=== PATIENT | female | born 1995 | race African-American/Black ===

== ENCOUNTER 2017-03-28 10:11 | Emergency (ER) | payer OTHER ==
[~2017-03-28] VITALS: Ht 160 cm; Wt 72.0 kg
[~2017-03-28 10:11] MED LIST: IBUP600T26 PO
[2017-03-28 10:13] VITALS: BP 122/69; PULSE 78; RESP 20; TEMP 97.9; O2SAT 99
--- NOTE | 2017-03-28 11:28 | PD ---
HPI Chief Complaint: General Weakness Time Seen by Provider: 11:24 Travel History International Travel<30 days: No Contact w/Intl Traveler<30days: No Traveled to known affect area: No History of Present Illness HPI 22-year-old female that presents to the ED for evaluation of lightheadedness. Per patient she's had this for about 2 weeks. Per patient he comes and goes. 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 Therefore she came here. Per patient she works in a very hot environment and she does not drink plenty of fluids. She denies any fevers or . She denies any medical issues. No recent travel. No fevers chills or sweats. Per patient she does feel somewhat tired. She states that she has had no extremity is vaginal bleeding. She denies any pain. She has any chest pain. No palpitations. No other symptom of any kind. Per patient she is here mainly to get medical clearance and she can go back to work. Per patient lightheadedness is only present when she stands up. PFSH Past Medical History ?: Unknown : 1 Social History Alcohol Use: No Tobacco Use: Yes (quit in 03/2015) Substance Use: No Allergies-Medications (Allergen,Severity, Reaction): Coded Allergies: No Known Allergies (Unverified , 03/28/17) Reported Meds & Prescriptions Reported Meds & Active Scripts Active Ibuprofen 600 Mg Tab 600 Mg PO TID Review of Systems Except as stated in HPI: all other systems reviewed are Neg Physical Exam Narrative GENERAL: SKIN: Warm and dry. HEAD: Atraumatic. Normocephalic. EYES: Pupils equal and round. No scleral icterus. No injection or drainage. ENT: No nasal bleeding or discharge. Mucous membranes pink and moist. Tongue is midline. No uvula deviation. TMs are clear with no sign of infection or perforation. Nostril mucosa is pink and moist. No cervical tenderness. No meningeal signs noted. NECK: Trachea midline. No JVD. CARDIOVASCULAR: Regular rate and rhythm. No murmurs, S3, S4. RESPIRATORY: No accessory muscle use. Clear to auscultation. Breath sounds equal bilaterally. GASTROINTESTINAL: Abdomen soft, non-tender, nondistended. Hepatic and splenic margins not palpable. MUSCULOSKELETAL: Extremities without clubbing, cyanosis, or edema. No obvious deformities. Full range of motion of the upper and lower extremities bilaterally. 2+ pulses bilaterally. NEUROLOGICAL: Awake and alert. No obvious cranial nerve deficits. Motor grossly within normal limits. Five out of 5 muscle strength in the arms and legs. Normal speech. PSYCHIATRIC: Appropriate mood and affect; insight and judgment normal. Data Data Last Documented VS Vital Signs Date Time Temp Pulse Resp B/P Pulse Ox O2 Delivery O2 Flow Rate FiO2 03/28/17 10:30 97 Room Air 03/28/17 10:13 97.9 78 20 122/69 Orders Complete Blood Count With Diff (03/28/17 10:59) Basic Metabolic Panel (Bmp) (03/28/17 10:59) Urinalysis - C+S If Indicated (03/28/17 10:59) Magnesium (Mg) (03/28/17 10:59) Thyroid Stimulating Hormone (03/28/17 10:59) Ed Urine Pregnancytest Poc (03/28/17 10:59) Labs Laboratory Tests Test 03/28/17 11:05 White Blood Count 10.1 TH/MM3 Red Blood Count 4.51 MIL/MM3 Hemoglobin 12.3 GM/DL Hematocrit 38.0 % Mean Corpuscular Volume 84.2 FL Mean Corpuscular Hemoglobin 27.4 PG Mean Corpuscular Hemoglobin 32.5 % Concent Red Cell Distribution Width 13.7 % Platelet Count 229 TH/MM3 Mean Platelet Volume 10.0 FL Neutrophils (%) (Auto) 61.6 % Lymphocytes (%) (Auto) 28.1 % Monocytes (%) (Auto) 8.5 % Eosinophils (%) (Auto) 1.2 % Basophils (%) (Auto) 0.6 % Neutrophils # (Auto) 6.2 TH/MM3 Lymphocytes # (Auto) 2.8 TH/MM3 Monocytes # (Auto) 0.9 TH/MM3 Eosinophils # (Auto) 0.1 TH/MM3 Basophils # (Auto) 0.1 TH/MM3 CBC Comment DIFF FINAL Differential Comment Urine Color YELLOW Urine Turbidity CLEAR Urine pH 6.5 Urine Specific [place] 1.030 Urine Protein TRACE mg/dL Urine Glucose (UA) NEG mg/dL Urine Ketones NEG mg/dL Urine Occult Blood NEG Urine Nitrite NEG Urine Bilirubin NEG Urine Urobilinogen LESS THAN 2.0 MG/DL Urine Leukocyte Esterase NEG Urine RBC 1 /hpf Urine WBC 3 /hpf Urine Squamous Epithelial 4 /hpf Cells Urine Mucus FEW /lpf Microscopic Urinalysis Comment CULT NOT INDICATED Sodium Level 140 MEQ/L Potassium Level 4.3 MEQ/L Chloride Level 107 MEQ/L Carbon Dioxide Level 27.3 MEQ/L Anion Gap 6 MEQ/L Blood Urea Nitrogen 9 MG/DL Creatinine 0.56 MG/DL Estimat Glomerular Filtration 162 ML/MIN Rate Random Glucose 73 MG/DL Calcium Level 9.0 MG/DL Magnesium Level 2.1 MG/DL Thyroid Stimulating Hormone 2.060 uIU/ML 3rd Gen [facility] Medical Decision Making Medical Screen Exam Complete: Yes Emergency Medical Condition: Yes Medical Record Reviewed: Yes Interpretation(s) CBC & BMP Diagram 03/28/17 11:05 TSH WNL UA negative Differential Diagnosis Lightheadedness versus versus electrolyte a multi-versus anemia versus thyroid disease versus normal exam Narrative Course 22-year-old female that presents to the ED for evaluation of lightheadedness. Patient was properly examined and was found to have signs and symptoms of unclear etiology. She is symptomatic at this time. Most of the symptoms appeared to happen at work but also at home. At this time recommend labs to rule out acute disease. Patient is agreeable with this plan. Labs showed here no sign of acute disease. Unclear etiology of the lightheadedness. I recommend close follow-up with PCP. Patient okay to go back to work. See ED worsening symptoms. Diagnosis Primary Impression: Light-headedness Patient Instructions: General Instructions Departure Forms: Tests/Procedures, Work Release Enter return to work date: Mar 29, 2017 Additional Instructions: Follow-up with PCP. See ED for worsening symptoms. Drink plenty of fluids while working. You are okay to go back to work as long as you keep hydrated. Your blood work here was unremarcable. Med/Other Pt SpecificInfo: No Change to Meds Disposition: 01 DISCHARGE HOME Condition: Stable Luis Enrique Mckeon Mar 28, 2017 11:28
[2017-03-28 11:33] LABS: AUTOMATED NEUTROPHIL # 6.2 TH/MM3 (1.8-7.7); BASOPHIL # 0.1 TH/MM3 (0-0.2); BASOPHIL % 0.6 % (0.0-2.0); EOSINOPHIL # 0.1 TH/MM3 (0-0.4); EOSINOPHIL % 1.2 % (0.0-4.0); HEMO FLAGS DIFF FINAL; LYMPH % 28.1 % (9.0-44.0); LYMPHOCYTE # 2.8 TH/MM3 (1.0-4.8); MEAN CELL VOLUME 84.2 FL (80.0-100.0); MEAN CORPUSCULAR HEMOGLOBIN 27.4 PG (27.0-34.0); MEAN CORPUSCULAR HGB CONC 32.5 % (32.0-36.0); MONO % 8.5 % (0.0-8.0); NEUT % 61.6 % (16.0-70.0); PLATELET COUNT 229 TH/MM3 (150-450); RED BLOOD COUNT 4.51 MIL/MM3 (4.00-5.30); RED CELL DISTRIBUTION WIDTH 13.7 % (11.6-17.2); WHITE BLOOD COUNT 10.1 TH/MM3 (4.0-11.0)
[2017-03-28 11:42] LABS: BLOOD, URINE NEG (NEG); GLUCOSE,URINE NEG (NEG); KETONE, URINE NEG (NEG); MUCUS URINE FEW /lpf (OCC); NITRITE,URINE NEG (NEG); PH, URINE 6.5 (5.0-8.5); SQUAMOUS EPITHELIAL CELL URINE 4 /hpf (0-5); URINE COLOR YELLOW (YELLW/STRAW)
[2017-03-28 11:46] LABS: COMMENT (UR) CULT NOT INDICATED; CULTURE IF INDICATED CULT NOT INDICATED
[2017-03-28 12:29] LABS: BICARBONATE 27.3 MEQ/L (21.0-32.0); MAGNESIUM 2.1 MG/DL (1.5-2.5); POTASSIUM 4.3 MEQ/L (3.5-5.1)
== END 2017-03-28 13:00 | disposition home or self-care (01) ==
LOC: NEPD 10:11
DX: R42 Dizziness and giddiness (principal)
CPT/HCPCS: 80048; 81001; 83735; 84443; 84703; 85025; 99283

== ENCOUNTER 2017-04-11 11:35 | Emergency (ER) | payer OTHER ==
[~2017-04-11] VITALS: Ht 160 cm; Wt 68.0 kg
[2017-04-11 11:37] VITALS: BP 124/69; PULSE 100; RESP 20; TEMP 98.4; O2SAT 100
[2017-04-11] MEDS ORDERED: IBUP800T23 PO (12:34)
[2017-04-11] MEDS ORDERED: AMOX500C PO (12:34)
[2017-04-11] MEDS ORDERED: MAGICPED SWISH-SPIT (12:34)
--- NOTE | 2017-04-11 12:35 | PD ---
HPI Chief Complaint: ENT Complaint Time Seen by Provider: 12:33 Travel History International Travel<30 days: No Contact w/Intl Traveler<30days: No Traveled to known affect area: No History of Present Illness HPI 22-year-old female presents to emergency department complaining of right ear pain and sore throat since last night. Denies fever, vomiting. Reports nasal congestion and occasional cough. Reports voice is hoarse. Reports swelling in her throat. Denies unusual drooling, lump in throat, difficulty swallowing. Reports painful swallowing. Denies abdominal pain. Reports headache. Has not taken any medications or tried any treatments to alleviate her symptoms. No known allergies. Has no other medical complaints. No other modifying factors or associated signs and symptoms. PFSH Past Medical History ?: Not : 1 Social History Alcohol Use: No Tobacco Use: Yes (quit in 03/2015) Substance Use: No Allergies-Medications (Allergen,Severity, Reaction): Coded Allergies: No Known Allergies (Unverified , 04/11/17) Reported Meds & Prescriptions Reported Meds & Active Scripts Active Magic Mouthwash Pediatric/Adult Liq (Lidocaine/Diphenhydr/Alum/Mg/Simeth) 60 Ml Susp 5 Ml SWISH-SPIT Q3HR PRN Each 5mL contains: Diphenydramine 4.5mg, Viscous Lidocaine 2% 10mg, Maalox Advanced Regular Strength 2.7ml Ibuprofen 800 Mg Tab 800 Mg PO Q6HR PRN Amoxicillin 500 Mg Cap 500 Mg PO BID 10 Days Ibuprofen 600 Mg Tab 600 Mg PO TID Review of Systems Except as stated in HPI: all other systems reviewed are Neg Physical Exam Narrative GENERAL: Well-nourished, well-developed female patient, in no acute distress; afebrile, nontoxic-appearing SKIN: Warm and dry. No rash. HEAD: Atraumatic. Normocephalic. EYES: Pupils equal and round at 3 mm with brisk reaction. No scleral icterus. No injection or drainage. PERRLA. ENT: Mucosa pink and dry. Pharynx with 2+ tonsils; with erythema, exudate, and edema. No Uvular edema. No uvular, palatal, or tonsillar deviation. Airway patent. Voice is hoarse. EARS: Bilateral pinnae and external canals appear within normal limits. Bilateral tympanic membranes without erythema, dullness or perforation.. NECK: Trachea midline. Anterior cervical lymphadenopathy and tenderness. CARDIOVASCULAR: Regular rate. RESPIRATORY: No accessory muscle use. GASTROINTESTINAL: Flat. MUSCULOSKELETAL: No obvious deformities. No clubbing. No cyanosis. No edema. NEUROLOGICAL: Awake and alert. Oriented 3. No obvious cranial nerve deficits. Motor grossly within normal limits. Normal speech. Moves all extremities. PSYCHIATRIC: Appropriate mood and affect; insight and judgment normal. Data Data Last Documented VS Vital Signs Date Time Temp Pulse Resp B/P Pulse Ox O2 Delivery O2 Flow Rate FiO2 04/11/17 11:37 98.4 100 20 124/69 100 Room Air Orders Ibuprofen (Motrin) (04/11/17 12:45) [facility] Medical Decision Making Medical Screen Exam Complete: Yes Emergency Medical Condition: Yes Medical Record Reviewed: Yes Differential Diagnosis Exudative pharyngitis, strep pharyngitis, viral pharyngitis, mono, less likely peritonsillar abscess Narrative Course 22-year-old female physical exam consistent with exudative pharyngitis. Patient afebrile and nontoxic-appearing. Denies fever, vomiting. Ibuprofen administered in the ER. Amoxicillin, Magic mouthwash, ibuprofen prescribed for home. Instructed patient to follow up with primary care provider. Patient verbalizes understanding and agreement with treatment plan. Patient is medically cleared and stable for discharge. Discussed reasons to return to the emergency department. Patient agrees with treatment plan. The patients vital signs are stable and the patient is stable for outpatient follow-up and treatment. Patient discharged home, stable and in no acute distress. Diagnosis Primary Impression: Exudative pharyngitis Referrals: Primary Care Physician Patient Instructions: General Instructions, Pharyngitis (ED) Departure Forms: Tests/Procedures, Work Release Enter return to work date: Apr 13, 2017 Additional Instructions: Take Antibiotics as prescribed and complete full course of antibiotics Throw away and change your toothbrush 24 hours after starting antibiotics Get plenty of sleep/rest Rest your voice Drink plenty of fluids to prevent dehydration Use warm saltwater gargles to soothe throat pain Use an air humidifier/turn off ceiling fans Use throat lozenges as needed for sore throat Use ibuprofen or acetaminophen as needed to relieve pain and fever Follow-up with your primary care provider within 2-4 days Return immediately to the emergency department with worsening of symptoms Med/Other Pt SpecificInfo: Prescription(s) given Scripts Ulfavpmebvccniu-Eqrehbuet-Tdr-Alum-Simeth Liq (Magic Mouthwash Pediatric/Adult Liq)60 Ml Susp5 Ml SWISH-SPIT Q3HR PRN (SORE THROAT) #60 ML Ref 0 Each 5mL contains: Diphenydramine 4.5mg, Viscous Lidocaine 2% 10mg, Maalox Advanced Regular Strength 2.7ml Prov:Carlie Brewster 04/11/17 Ibuprofen 800 Mg [id number] Mg PO Q6HR PRN (PAIN) #30 TAB Ref 0 Prov:Carlie Brewster 04/11/17 Amoxicillin 500 Mg [id number] Mg PO BID 10 Days Ref 0 Prov:Carlie Brewster 04/11/17 Disposition: 01 DISCHARGE HOME Condition: Stable Carlie Brewster Apr 11, 2017 12:35
[2017-04-11] MEDS ORDERED: IBUPROFEN 800 MG TAB PO ONE (12:45)
== END 2017-04-11 12:42 | disposition home or self-care (01) ==
LOC: NEPK 11:35
DX: J02.9 Acute pharyngitis, unspecified (principal); H92.01 Otalgia, right ear; R05 Cough; Z87.891 Personal history of nicotine dependence
CPT/HCPCS: 99284

== ENCOUNTER 2017-04-12 12:38 | Emergency (ER) | payer OTHER ==
[~2017-04-12] VITALS: Ht 160 cm; Wt 70.0 kg
[~2017-04-12 12:38] MED LIST changes: +AMOX500C PO; +IBUP800T23 PO; +MAGICPED SWISH-SPIT
[2017-04-12 12:53] VITALS: BP 126/74; PULSE 90; RESP 20; O2SAT 100
--- NOTE | 2017-04-12 12:56 | PD ---
HPI Chief Complaint: Respiratory Symptoms Time Seen by Provider: 12:51 Travel History International Travel<30 days: No Contact w/Intl Traveler<30days: No History of Present Illness HPI 22-year-old female here with complaint of sore throat and shortness of breath. Patient seen here in our emergency department yesterday with sore throat and diagnosed with pharyngitis. Discharged home with Magic mouthwash and amoxicillin but she has not yet filled these prescriptions stating that she was specific, but the pharmacy this afternoon. Patient states that she woke up from a nap this morning and felt as though her throat was closing in on her and she began to feel short of breath and had a anxiety and panic attack and EMS was dispatched to the house. Patient was not in any respiratory distress but was hyperventilating and tachycardic when EMS arrived, improved in route. Patient states that her throat is still sore, swollen and seems to have gotten worse today. No fevers or chills. PFSH Past Medical History Medical History: Denies Significant Hx Diminished Hearing: No Immunizations Current: No : 1 Social History Alcohol Use: No Tobacco Use: Yes (5 CIG PER DAY ) Substance Use: No Allergies-Medications (Allergen,Severity, Reaction): Coded Allergies: No Known Allergies (Unverified , 04/11/17) Reported Meds & Prescriptions Reported Meds & Active Scripts Active Magic Mouthwash Pediatric/Adult Liq (Lidocaine/Diphenhydr/Alum/Mg/Simeth) 60 Ml Susp 5 Ml SWISH-SPIT Q3HR PRN Each 5mL contains: Diphenydramine 4.5mg, Viscous Lidocaine 2% 10mg, Maalox Advanced Regular Strength 2.7ml Ibuprofen 800 Mg Tab 800 Mg PO Q6HR PRN Amoxicillin 500 Mg Cap 500 Mg PO BID 10 Days Ibuprofen 600 Mg Tab 600 Mg PO TID Review of Systems Except as stated in HPI: all other systems reviewed are Neg Physical Exam Narrative GENERAL: Well-appearing female in no acute distress SKIN: Focused skin assessment warm/dry. HEAD: Normocephalic. EYES: No scleral icterus. No injection or drainage. ENT: Posterior pharynx with 2-3+ tonsils with white exudate bilaterally, palatal petechiae. Structures are midline, no uvular deviation. Neck is supple with some shoddy anterior cervical lymphadenopathy. Floor of the mouth is soft. No nasal bleeding or discharge. Mucous membranes pink and moist. NECK: Supple with shoddy anterior cervical lymphadenopathy, full pain-free range of motion. CARDIOVASCULAR: Regular rate and rhythm. No murmur appreciated. RESPIRATORY: No accessory muscle use. Clear to auscultation. Breath sounds equal bilaterally. MUSCULOSKELETAL: Normal gait NEUROLOGICAL: Awake and alert. Normal speech. PSYCHIATRIC: Appropriate mood and affect; insight and judgment normal. Data Data Orders Penicillin G Benzathine Inj (Bicillin L- (04/12/17 13:00) Dexamethasone Inj (Decadron Inj) (04/12/17 13:00) [facility] Medical Decision Making Medical Screen Exam Complete: Yes Emergency Medical Condition: Yes Medical Record Reviewed: Yes Differential Diagnosis 22-year-old female here with sore throat and a sense of her throat closing in upon her causing shortness of breath. Exam is consistent with exudate of pharyngitis, likely strep given her symptomatology. At this time structures are midline and there is no evidence of peritonsillar abscess, retropharyngeal abscess, Jorge angina. Narrative Course Patient was given intramuscular penicillin and Decadron and discharged home Diagnosis Primary Impression: Exudative pharyngitis Referrals: [facility] as needed Primary Care Physician as needed Additional Instructions: You do not need to fill the prescription for the amoxicillin. You were given penicillin intramuscularly here and do not need to take any more antibiotics at home. Can use the Magic mouthwash that was prescribed yesterday as this will help with pain in the interim while the antibiotics kick in. Return to the emergency department for the warning signs discussed. Med/Other Pt SpecificInfo: No Change to Meds Disposition: 01 DISCHARGE HOME Condition: Stable Yani Oakes MD Apr 12, 2017 12:56
[2017-04-12] MEDS ORDERED: DEXAMETHASONE SOD PHOS 20 MG/5 ML VIAL IM ONE (13:00)
[2017-04-12] MEDS ORDERED: PENICILLIN G BENZATHINE 1,200,000 UNITS/2 ML SYRINGE IM ONE (13:00)
[2017-04-12 13:08] VITALS: TEMP 99.3
== END 2017-04-12 14:29 | disposition home or self-care (01) ==
LOC: NEPD 12:38
DX: J02.9 Acute pharyngitis, unspecified (principal); F17.210 Nicotine dependence, cigarettes, uncomplicated
CPT/HCPCS: 96372; 99284; J0561; J1100

== ENCOUNTER 2017-06-17 00:10 | Emergency (ER) | payer SELFPAY ==
[~2017-06-17] VITALS: Ht 160 cm; Wt 63.5 kg
[2017-06-17 00:12] VITALS: BP 119/63; PULSE 90; RESP 16; TEMP 98.5; O2SAT 99
--- NOTE | 2017-06-17 01:36 | PD ---
HPI Chief Complaint: Abdominal Pain Time Seen by Provider: 01:19 Travel History International Travel<30 days: No Contact w/Intl Traveler<30days: No Traveled to known affect area: No History of Present Illness HPI 22-year-old female complains of left lower quadrant abdominal pain. Patient states that her last menstruation period was the first week in April. Patient states that she has intermittent sharp pain localized left lower quadrant of the abdomen. Patient denies any pain radiation. Patient denies any dysuria or frequency. Patient denies any fever chills. Patient denies any vaginal discharge or bleeding. Patient's blood type O+. PFSH Past Medical History Diminished Hearing: No Immunizations Current: No Influenza Vaccination: Yes ?: Unknown LMP: 04/12/17 : 1 Para: 1 Social History Alcohol Use: No Tobacco Use: Yes (5 CIG PER DAY ) Substance Use: No Allergies-Medications (Allergen,Severity, Reaction): Coded Allergies: No Known Allergies (Unverified , 06/17/17) Reported Meds & Prescriptions Reported Meds & Active Scripts Active No Active Prescriptions or Reported Medications Review of Systems General / Constitutional: No: Fever Eyes: No: Visual changes HENT: No: Headaches Cardiovascular: No: Chest Pain or Discomfort Respiratory: No: Shortness of Breath Gastrointestinal: Positive: Abdominal Pain Genitourinary: No: Dysuria Musculoskeletal: No: Pain Skin: No Rash Neurologic: No: Weakness Psychiatric: No: Depression Endocrine: No: Polydipsia Hematologic/Lymphatic: No: Easy Bruising Physical Exam Narrative GENERAL: Well-nourished, well-developed patient. SKIN: Focused skin assessment warm/dry. HEAD: Normocephalic. EYES: No scleral icterus. No injection or drainage. NECK: Supple, trachea midline. No JVD or lymphadenopathy. CARDIOVASCULAR: Regular rate and rhythm without murmurs, gallops, or rubs. RESPIRATORY: Breath sounds equal bilaterally. No accessory muscle use. GASTROINTESTINAL: Abdomen soft, nondistended. Patient has mild tenderness on palpation left lower quadrant the abdomen. No rebound tenderness. No mass. MUSCULOSKELETAL: No cyanosis, or edema. BACK: Nontender without obvious deformity. No CVA tenderness. 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 No cervical motion tenderness. Uterus is enlarged and nontender on palpation. No adnexal masses or tenderness. Data Data Last Documented VS Vital Signs Date Time Temp Pulse Resp B/P (MAP) Pulse Ox O2 Delivery O2 Flow Rate FiO2 06/17/17 00:12 98.5 90 16 119/63 (81) 99 Orders Orders Urinalysis - C+S If Indicated (06/17/17 01:22) Iv Access Insert/Monitor (06/17/17 01:22) Ed Urine Pregnancytest Poc (06/17/17 01:46) Labs Laboratory Tests Test 06/17/17 01:20 Urine Color YELLOW Urine Turbidity HAZY Urine pH 7.0 Urine Specific [place] 1.031 Urine Protein 30 mg/dL Urine Glucose (UA) NEG mg/dL Urine Ketones NEG mg/dL Urine Occult Blood NEG Urine Nitrite NEG Urine Bilirubin NEG Urine Urobilinogen 2.0 MG/DL Urine Leukocyte Esterase NEG Urine RBC LESS THAN 1 /hpf Urine WBC 3 /hpf Urine Squamous Epithelial Cells 19 /hpf Urine Hyaline Casts 1 /lpf Urine Mucus MANY /lpf Microscopic Urinalysis Comment CULT NOT INDICATED MDM Medical Decision Making Medical Screen Exam Complete: Yes Emergency Medical Condition: Yes Interpretation(s) 2:32 AM. UA is negative Differential Diagnosis Differential diagnosis including musculoskeletal, ligament pain, ovarian cyst, UTI, ectopic . Narrative Course 22-year-old female with left lower quadrant abdominal pain. Bedside ultrasound shows intrauterine , active fetus, heart tones 146. Diagnosis Primary Impression: Pelvic pain in Patient Instructions: General Instructions Additional Instructions: Tylenol for pain. Advised Inada vitamins. Follow-up with OB physician. Return if worse. Return immediately if vaginal bleeding or increasing pain. Med/Other Pt SpecificInfo: No Meds Exist/No RX given Scripts No Active Prescriptions or Reported Meds Disposition: DISCHARGE HOME Condition: Stable Zaid Barriga MD Jun 17, 2017 01:36
[2017-06-17 02:11] LABS: BLOOD, URINE NEG (NEG); GLUCOSE,URINE NEG (NEG); HYALINE CAST, URINE 1 /lpf (RARE); KETONE, URINE NEG (NEG); MUCUS URINE MANY /lpf (OCC); NITRITE,URINE NEG (NEG); SQUAMOUS EPITHELIAL CELL URINE 19 /hpf (0-5); URINE COLOR YELLOW (YELLW/STRAW)
[2017-06-17 02:12] LABS: COMMENT (UR) CULT NOT INDICATED; CULTURE IF INDICATED CULT NOT INDICATED
== END 2017-06-17 02:57 | disposition home or self-care (01) ==
LOC: NEPC 00:10
DX: R10.2 Pelvic and perineal pain (principal); Z33.1 Pregnant state, incidental
CPT/HCPCS: 81001; 84703; 99284

== ENCOUNTER 2017-09-02 14:02 | Emergency (ER) | payer OTHER ==
[~2017-09-02] VITALS: Ht 160 cm; Wt 68.2 kg
[2017-09-02 14:05] VITALS: BP 140/86; PULSE 86; RESP 12; TEMP 98.4; O2SAT 98
[2017-09-02 14:52] VITALS: BP 118/61; PULSE 83
[2017-09-02 15:00] VITALS: RESP 18; TEMP 98
[2017-09-02] MEDS ORDERED: ACETAMINOPHEN 325 MG TAB PO ONE (15:00)
--- NOTE | 2017-09-02 15:12 | PD ---
HPI Chief Complaint Spotting, pelvic pain Date Seen: Sep 02, 2017 Time Seen: 15:00 Travel History International Travel<30 Days: No Contact w/Intl Traveler<30Days: No Known Affected Area: No History of Present Illness HPI Patient is a 22-year-old at about 23 weeks who presents with vaginal spotting and pelvic pain. She reports that she has had pelvic pain for the past 3 weeks, but it has become acutely worse, which is why she presented to the OB emergency department. She reports that she has had spotting since last week, on and off, varying from a light pink to a dark discharge, significantly less then a menstrual period. She has not had any care this . She denies any contractions or leakage of fluid. She reports movement at baseline. History Past Medical History Medical History: Denies Significant Hx Obstetric History Obstetric History Patient is a . She reports that her last was uncomplicated. She delivered full-term vaginal delivery of a normal weight daughter. Past Surgical History Surgical History: No Previous Surgery Family History Family History: Negative Social History Narrative Social History Patient lives at home with her boyfriend and daughter. Alcohol Use: No Tobacco Use: Yes (2 cigarettes per day) Substance Abuse: No Allergies-Medications (Allergen,Severity, Reaction): Coded Allergies: No Known Allergies (Unverified Allergy, Unknown, 09/02/17) Home Meds Active Scripts Cephalexin (Cephalexin) 500 Mg Cap, 500 MG PO Q6H for Infection for 5 Days, #20 CAP 0 Refills Prov:Rocky Levy MD R2 09/02/17 Review of Systems General / Constitutional: No: Fever, Chills Eyes: No: Visual changes HENT: No: Headaches Cardiovascular: No: Chest Pain or Discomfort Respiratory: No: Short of Breath Gastrointestinal: No: Nausea, Vomiting, Abdominal Pain Genitourinary: No: Dysuria Musculoskeletal: Pain (pelvic pain), No: Cramping, Edema Neurologic: Dizziness (with prolonged standing or walking) Physical Exam 118/61, 83 Narrative GENERAL: Well-nourished, well-developed patient. SKIN: Warm and dry. HEAD: Normocephalic and atraumatic. EYES: No scleral icterus. No injection or drainage. ENT: No nasal drainage noted. Mucous membranes pink. Airway patent. NECK: Supple, trachea midline. No JVD. CARDIOVASCULAR: Regular rate and rhythm without murmurs, gallops, or rubs. RESPIRATORY: Breath sounds equal bilaterally. No accessory muscle use. BREASTS: Bilateral exam showed no masses , no retractions, no nipple discharge. ABDOMEN/GI: Abdomen soft, non-tender, bowel sounds present, no rebound, no guarding Gravid to around 20-24 weeks size GENITOURINARY: Uterine Contractions: none FHT's: Category: Cat I Baseline: 140 Reactive: not well traced, but there appear to be accelerations present Variability: moderate Decels: none EXTREMITIES: No cyanosis or edema. BACK: Nontender without obvious deformity. No CVA tenderness. NEUROLOGICAL: Awake and alert. Motor and sensory grossly within normal limits. Five out of 5 muscle strength in all muscle groups. Normal speech. Data Data Vital Signs Reviewed: Yes Orders Orders Ed Urine Pregnancytest Poc (09/02/17 14:03) Vital Signs (Adult) .ON ADMISSION (09/02/17 14:56) ^ Labor Status (09/02/17 14:56) Urinalysis - C+S If Indicated (09/02/17 14:56) ^ Hydration (09/02/17 14:56) Acetaminophen (Tylenol) (09/02/17 15:00) Ob/Psych Drug Screen, Urine (09/02/17 14:56) Drug Screen, Random Urine (09/02/17 14:56) Rubella Immune Status (09/02/17 14:56) Hepatitis Profile (09/02/17 14:56) Rapid Plasma Regin (Rpr) W Ttr (09/02/17 14:56) Type And Screen (09/02/17 14:56) Complete Blood Count With Diff (09/02/17 14:56) Special Serology (09/02/17 14:56) Us Ob Pelvis >14 Wks Fetus (09/02/17 ) MDM Plan Patient is a 22-year-old at about 23 weeks who presents with a week of vaginal spotting and 3 weeks of pelvic pain, which became acutely worse. She has not had care this . 1. Spotting -OB ultrasound for placenta, growth, dates, BPP -Monitor vital signs, labor status/tocometry -Type and screen to see if she needs Rhogam -CBC to r/o anemia given her h/o dizziness 2. Pelvic pain without contractions -Tylenol PRN -Warm baths, compresses when necessary 3. No PNC -UA, UDS -OB US as above -Encouraged patient to establish care -Encouraged patient to take PNV d/w Dr. Coronel Addendum: Ultrasound was performed. Suggested update to gestational age. Patient is now currently 24 weeks and 2 days. Exam was normal. UA concerning for UTI with moderate leukocyte esterase, moderate bacteria, few mucus, culture indicated. Plan to treat with Keflex 500 mg by mouth every 6 hours for 5 days. Still waiting on CBC and T&S, but patient reports that she is fairly certain her blood type is O+. Diagnosis Diagnosis: Primary Impression: Vaginal spotting Additional Impressions: Spotting affecting No care in current UTI (urinary tract infection) during Ruled Out: Placenta previa affecting delivery Disposition: 01 DISCHARGE HOME Condition: Good Scripts Cephalexin (Cephalexin) 500 Mg Cap 500 MG PO Q6H for Infection for 5 Days, #20 CAP 0 Refills Prov: Rocky Levy MD R2 09/02/17 Rocky Levy MD R2 Sep 02, 2017 15:12
[2017-09-02 16:51] LABS: BACTERIA, URINE MOD /hpf; BLOOD, URINE NEG (NEG); COMMENT (UR) CULTURE INDICATED; CULTURE IF INDICATED CULTURE INDICATED; GLUCOSE,URINE NEG (NEG); KETONE, URINE NEG (NEG); MUCUS URINE FEW /lpf (OCC); NITRITE,URINE NEG (NEG); SQUAMOUS EPITHELIAL CELL URINE 25 /hpf (0-5); URINE COLOR YELLOW (YELLW/STRAW)
[2017-09-02] MEDS ORDERED: CEPH500C PO (17:33)
[2017-09-02 17:41] LABS: AUTOMATED NEUTROPHIL # 5.9 TH/MM3 (1.8-7.7); BASOPHIL # 0.1 TH/MM3 (0-0.2); BASOPHIL % 0.6 % (0.0-2.0); EOSINOPHIL # 0.1 TH/MM3 (0-0.4); EOSINOPHIL % 0.9 % (0.0-4.0); HEMATOCRIT 33.9 % (35.0-46.0); HEMO FLAGS DIFF FINAL; LYMPH % 28.2 % (9.0-44.0); LYMPHOCYTE # 2.7 TH/MM3 (1.0-4.8); MEAN CELL VOLUME 87.6 FL (80.0-100.0); MEAN CORPUSCULAR HEMOGLOBIN 28.9 PG (27.0-34.0); MONO % 7.2 % (0.0-8.0); NEUT % 63.1 % (16.0-70.0); PLATELET COUNT 196 TH/MM3 (150-450); RED BLOOD COUNT 3.88 MIL/MM3 (4.00-5.30); RED CELL DISTRIBUTION WIDTH 13.1 % (11.6-17.2); WHITE BLOOD COUNT 9.4 TH/MM3 (4.0-11.0)
[2017-09-02 18:26] VITALS: BP 117/67; PULSE 78; RESP 18; TEMP 97.8
[2017-09-08 14:50] LABS: BATH SALTS (MDPV) UR NEG (NEG); ECSTASY (MDMA) UR NEG (NEG); HEROIN (6-ACETYLMORPHINE) UR NEG (NEG); K2 SPICE UR NEG (NEG); OBGABAPENTIN UR NEG (NEG); OBHYDROMORPHONE U NEG (NEG); OBMETHADONE UR NEG (NEG); PHENCYCLIDINE URINE NEG (NEG)
== END 2017-09-02 19:01 | disposition home or self-care (01) ==
LOC: HOBED 14:02
DX: O26.852 Spotting complicating pregnancy, second trimester (principal); O23.42 Unspecified infection of urinary tract in pregnancy, second trimester; O09.32 Supervision of pregnancy with insufficient antenatal care, second trimester; O99.332 Smoking (tobacco) complicating pregnancy, second trimester; B96.89 Other specified bacterial agents as the cause of diseases classified elsewhere; Z16.23 Resistance to quinolones and fluoroquinolones; Z3A.24 24 weeks gestation of pregnancy
CPT/HCPCS: 76805; 80307; 81001; 85025; 86850; 86900; 86901; 87077; 87086; 87186; 99284

== ENCOUNTER 2017-09-14 19:15 | Emergency (ER) | payer OTHER ==
[~2017-09-14 19:15] MED LIST changes: -AMOX500C PO; +CEPH500C PO; -IBUP600T26 PO; -IBUP800T23 PO; -MAGICPED SWISH-SPIT
[2017-09-14 19:17] VITALS: BP 130/65; PULSE 65; RESP 16; TEMP 98.4; O2SAT 100
--- NOTE | 2017-09-14 20:10 | PD ---
HPI Chief Complaint: Dizziness Time Seen by Provider: 19:43 Travel History International Travel<30 days: No Contact w/Intl Traveler<30days: No Traveled to known affect area: No History of Present Illness HPI The patient is a 22-year-old female who presents emergency department for left ankle pain. The patient states she is currently 26 weeks , . The patient states occasionally she will have hot flashes, had a hot flash episode with dizziness while riding the public transportation bus. The patient states she stepped off of the bus to get some fresh air and when she did she injured her left ankle. The patient states that she twisted the ankle in an inversion type fashion and now has pain over the lateral aspect left ankle. She has difficulty bearing weight secondary to pain. She also complains of some numbness and tingling of the lateral aspect the left foot. She denies falling to the ground and denies any head injury, neck injury, or abdominal injury. She continues to feel the fetus moving without difficulty. She denies any vaginal bleeding. Symptoms are mild, exacerbated after she twisted her left ankle, and there are no current alleviating factors. PFSH Past Medical History Diminished Hearing: No Immunizations Current: No ?: : 1 Para: 1 Social History Alcohol Use: No Tobacco Use: Yes (2 cigarettes per day) Substance Use: No Allergies-Medications (Allergen,Severity, Reaction): Coded Allergies: No Known Allergies (Verified Allergy, Unknown, 09/14/17) Reported Meds & Prescriptions Reported Meds & Active Scripts Active Reported Multivitamin + D 28-0.8 & 200 mg ( Mv & Min W/Fe Fumarat) 28 Mg Iron-800 Mcg-200 Mg Mis Review of Systems Except as stated in HPI: all other systems reviewed are Neg HENT: Positive: Lightheadedness, No: Headaches, Neck Pain Cardiovascular: No: Chest Pain or Discomfort, Palpitations, Irregular Rhythm, Tachycardia, Diaphoresis Gastrointestinal: No: Nausea, Vomiting, Abdominal Pain Genitourinary: No: Pelvic Pain, Vaginal Bleeding Musculoskeletal: Positive: Limited ROM, Pain Neurologic: Positive: Dizziness, Paresthesia, Sensory Disturbance Physical Exam Narrative GENERAL: Awake, alert, pleasant 22-year-old female who appears her stated age and is in no acute respiratory distress. SKIN: Focused skin assessment warm/dry. HEAD: Atraumatic. Normocephalic. EYES: Pupils equal and round. No scleral icterus. No injection or drainage. ENT: No nasal bleeding or discharge. Mucous membranes pink and moist. NECK: Trachea midline. No JVD. CARDIOVASCULAR: Regular rate and rhythm. No murmur appreciated. Heart rate in the 60s. RESPIRATORY: No accessory muscle use. Clear to auscultation. Breath sounds equal bilaterally. GASTROINTESTINAL: Abdomen soft, gravid, no tenderness. MUSCULOSKELETAL: Mild tenderness over the inferior and anterior aspect the lateral malleus on the left ankle. No tenderness at the base of the fourth and fifth metatarsal. Positive dorsalis pedal pulse. Limited plantarflexion, but is able to flex the left great toe with a strength of 5 out of 5. No tenderness of the proximal left tibia/fibula. No tenderness of left hip. She is able fully flex left hip and left knee. NEUROLOGICAL: Awake and alert. No obvious cranial nerve deficits. Motor grossly within normal limits. Normal speech. Sensation was intact to the medial , lateral, dorsal aspect of the left foot. PSYCHIATRIC: Appropriate mood and affect; insight and judgment normal. Data Data Last Documented VS Vital Signs Date Time Temp Pulse Resp B/P (MAP) Pulse Ox O2 Delivery O2 Flow Rate FiO2 09/14/17 19:17 98.4 65 16 130/65 (86) 100 Orders Orders Ankle, Limited (Ap&Lat) (09/14/17 ) [facility] Medical Decision Making Medical Screen Exam Complete: Yes Emergency Medical Condition: Yes Medical Record Reviewed: Yes Interpretation(s) Last Impressions Ankle X-Ray 09/14/17 0000 Signed Impressions: Service Date/Time: Thursday, September 14, 2017 20:38 - CONCLUSION: No acute disease. Nicola Avalos MD Differential Diagnosis Differential diagnosis includes fracture, contusion, hematoma, sprain, strain. Narrative Course An x-ray of the left ankle, 2 view, was ordered and I requested that the patient 's abdomen be shielded. X-ray of the left ankle was unremarkable. The patient was placed in an Micah wrap. She is advised to use crutches as needed, elevate, ice to the affected area, and Tylenol as needed for pain. Diagnosis Primary Impression: Left ankle pain Qualified Codes: M25.572 - Pain in left ankle and joints of left foot Patient Instructions: General Instructions Additional Instructions: Micah wrap and crutches as needed. Elevate, ice, activity as tolerated. Tylenol as needed for pain. Disposition: 01 DISCHARGE HOME Condition: Stable Nigel Long MD Sep 14, 2017 20:10
[2017-09-14] MEDS ORDERED: PRENMIS3 (20:22)
--- NOTE | 2017-09-14 21:26 | RADRPT ---
EXAM DATE/TIME: 09/14/2017 20:38 [facility] COMPARISON: No previous studies available for comparison. INDICATIONS : Left ankle pain. May have twisted ankle getting off bus. MEDICAL HISTORY : SURGICAL HISTORY : None. ENCOUNTER: Initial ACUITY: 1 day PAIN SCORE: 4/10 LOCATION: Left ankle. FINDINGS: Two view exam was performed of the left ankle. The bony structures are in normal alignment. No evid ence of fracture, dislocation, or soft tissue swelling. No radiopaque foreign bodies are seen. Bony mineralization is normal. CONCLUSION: No acute disease. Nicola Avalos MD on September 14, 2017 at 21:23 Board Certified Radiologist. This report was verified electronically.
[2017-09-14] MEDS ORDERED: ACETAMINOPHEN 325 MG TAB PO ONE (22:00)
== END 2017-09-14 22:50 | disposition home or self-care (01) ==
LOC: NEPD 19:15
DX: O26.892 Other specified pregnancy related conditions, second trimester (principal); M25.572 Pain in left ankle and joints of left foot; N95.1 Menopausal and female climacteric states; R42 Dizziness and giddiness; F17.210 Nicotine dependence, cigarettes, uncomplicated; Z3A.26 26 weeks gestation of pregnancy
CPT/HCPCS: 73600; 99283; E0113